=== PATIENT | male | born 1995 | race Caucasian/White ===

== ENCOUNTER 2020-09-04 10:59 | Outpatient (REF) | payer BC, SELFPAY | END 2020-09-04 11:00 | disposition home or self-care (01) | LOC: HO.SCI 10:59 | DX: Z13.89 Encounter for screening for other disorder (principal) ==

== ENCOUNTER 2020-09-12 08:24 | Outpatient (REF) | payer SELFPAY ==
--- NOTE | 2020-09-12 08:28 | US_ITS ---
EXAMINATION: US ABDOMEN COMPLETE CLINICAL INFORMATION: Abdominal pain. COMPARISON: None TECHNIQUE: Real-time imaging of the abdominal viscera. Technically limited study secondary to bowel gas. FINDINGS: PANCREAS: Visualized portions unremarkable. The tail is partially obscured by bowel gas shadowing. ABDOMINAL AORTA: Unremarkable. INFERIOR VENA CAVA: Unremarkable. LIVER: Unremarkable. GALLBLADDER: Unremarkable. COMMON BILE DUCT: Normal in caliber measuring 0.3 cm in diameter. RIGHT KIDNEY: 10.7 cm. Unremarkable. LEFT KIDNEY: 12.1 cm. Unremarkable. SPLEEN: Normal. The spleen measures 11.9 cm in maximum dimension. FREE FLUID: None. US/US abdomen complete IMPRESSION: Unremarkable abdominal ultrasound.
== END 2020-09-12 08:25 | disposition home or self-care (01) ==
LOC: HO.HMGCX 08:24
PROVIDERS: PCP Internal Medicine; Visit Provider Physician Assistant
DX: R10.9 Unspecified abdominal pain (principal)
CPT/HCPCS: 76700

== ENCOUNTER 2023-04-28 11:53 | Outpatient (REF) | payer OTHER, SELFPAY ==
[2023-04-28 17:22] LABS: MANUAL DIFF FLAG NO
[2023-04-28 17:33] LABS: Basophils Absolute Auto 0.1 X10*3/uL (0.0-0.2); Eosinophils Absolute Auto 0.2 X10*3/uL (0.0-0.4); Eosinophils Percent Auto 3.8 % (0-4); Hematocrit 44.6 % (42.0-52.0); Hemoglobin 15.6 g/dl (14.0-18.0); Imm Gran Abs Auto 0.02 X10*3/uL (0.00-0.03); Imm Gran Pct Auto 0.4 % (0.0-0.4); Lymphocytes Absolute Auto 1.5 X10*3/uL (1.2-4.9); Mean Corpuscular Hemoglobin 30.1 pg (27.0-33.0); Mean Corpuscular Volume 86.1 fL (80.0-98.0); Mean Platelet Volume 10.6 fL (9.4-12.4); Monocytes Absolute Auto 0.4 X10*3/uL (0.1-1.2); Monocytes Percent Auto 7.8 % (2-11); Neutrophils Absolute Auto 3.1 x10*3/uL (2.0-8.3); Platelet Count 245 X10*3/uL (160-400); Red Blood Count 5.18 X10*6/uL (4.60-5.80); Red Cell Distribution Width 11.9 % (11.0-16.0); White Blood Count 5.3 X10*3/uL (4.8-10.8)
[2023-04-28 17:44] LABS: Appearance Urine Clear; Color Urine Yellow; Glucose Urine UA Negative (Negative); Leukocyte Esterase Urine Negative (Negative); Nitrite Urine Negative (Negative); Specific Gravity - Urine 1.025 (1.005-1.025); Urine Blood Negative (Negative); Urine Ketones Negative (Negative); Urine Protein Negative (Neg-Trace)
[2023-04-28 18:00] LABS: Alanine Aminotransferase 36 U/L (0-40); Albumin Level 4.5 g/dL (3.5-5.0); Alkaline Phosphatase 78 U/L (39-117); Anion Gap 11 (12-20); Aspartate Amino Transferase 19 U/L (5-37); Bilirubin Total 1.7 mg/dL (0.0-1.0); Blood Urea Nitrogen 11 mg/dL (9-16); C Reactive Protein 0.19 mg/dL (< or = 0.50); Calcium 9.6 mg/dL (8.4-10.2); Carbon Dioxide 26 mmol/L (22-29); Chloride 107 mmol/L (96-108); Estimated Glomerular Filt Rate > 60; Glucose Random 72 mg/dL (60-115); Iron 129 mcg/dL (45-160); Potassium 3.9 mmol/L (3.3-5.1); Sodium 140 mmol/L (135-145); Total Protein 7.4 g/dL (6.5-8.0)
[2023-04-28 18:04] LABS: Erythrocyte Sedimentation Rate 2 MM/HR (0-15)
[2023-04-28 18:15] LABS: Ferritin 218 ng/mL (20-250)
[2023-04-28 18:18] LABS: Percent Iron Saturation 47 % (15-50); Total Iron Binding Capacity 274 mcg/dL (228-428); Unsaturated Iron Binding 145 ug/dL
[2023-04-28 18:33] LABS: Immature Retic Fraction 9.7 % (2.3-13.4); Retic HGB Equivalent 35.7 pg (30.0-35.0); Reticulocyte Percent 2.2 % (0.5-1.8); Reticulocytes Absolute 0.114 X10*6/uL (0.026-0.095)
== END 2023-04-28 11:54 | disposition home or self-care (01) ==
LOC: HO.MANLDS 11:53
PROVIDERS: Visit Provider Physician Assistant
DX: K92.1 Melena (principal); R31.29 Other microscopic hematuria
CPT/HCPCS: 36415; 80053; 81003; 82550; 82728; 83540; 85025; 85045; 85652; 86140